=== PATIENT | female | born 1935 | race Caucasian/White ===

== ENCOUNTER 2018-11-09 10:41 | Emergency (ER) | payer OTHER ==
[~2018-11-09] VITALS: Ht 152.4 cm; Wt 54.7 kg
[2018-11-09 10:46] VITALS: Ht 152.4 cm; Wt 54.7 kg
[2018-11-09] MEDS ORDERED: AZIT250T PO (11:51)
--- NOTE | 2018-11-09 11:56 | ERD ---
ER Documentation Chief Complaint Chief Complaint cough x1wk HPI This is an 83-year-old female who has a history of A. fib complaining of cough that she has had for 3-4 days. No fever. No hemoptysis no unplanned weight loss. No nausea vomiting or diarrhea. No chest pain palpitations or shortness of breath. ROS All systems reviewed and are negative except as per history of present illness. Medications Home Meds Active Scripts Azithromycin* (Zithromax*) 250 Mg Tablet, 250 MG PO .ZPACK DIRECTED, #6 TAB TAKE 500 MG (2 TABS) THE FIRST DAY THEN 250 MG (1 TAB) DAYS 2-5 Prov:BESSY WHITLEY PA-C 11/09/18 Allergies Allergies: Coded Allergies: No Known Allergy (Unverified , 11/09/18) PMhx/Soc History of Surgery: Yes (APPENDIX REMOVAL) Hx Miscellaneous Medical Probl: Yes (HTN) Hx Alcohol Use: No Hx Substance Use: No Hx Tobacco Use: No Smoking Status: Never smoker FmHx Family History: No diabetes Physical Exam Vitals Vital Signs Date Temp Pulse Resp B/P (MAP) Pulse Ox O2 O2 Flow FiO2 Time Delivery Rate 11/09/18 98.7 87 18 148/72 96 10:46 (97) Physical Exam INITIAL VITAL SIGNS: Reviewed by me GENERAL: Awake, alert and oriented x 4, well appearing, nontoxic, speaking in full sentences. No acute distress HEAD: Atraumatic NECK: Supple. No masses. Full range of motion. No meningismus. No midline tenderness. EYES: EOMI. PERRL. THROAT: No tonilar erythema or edema. No exudates. Uvula midline. No kissing tonsils. RESPIRATORY: Clear to auscultation bilaterally. Symmetric chest wall rise. No wheezing or rales. No accessory muscle use. CV: Regular rate and rhythm. No murmurs, rubs, or gallops. ABDOMEN: Soft, non-distended. Nontender. Negative [place]. Negative McBurneys point tenderness. No CVA tenderness bilaterally. No guarding. No rebound. Procedures/MDM This is a 83-year-old female who has a cough. Her blood pressure is slightly elevated otherwise vital signs are normal. She is well-appearing in no distress. Her lungs are clear. Her chest x-ray is negative. I reviewed the case with Dr. Fields who agrees history with outpatient management and she was discharged with a Z-Saulo. Patient counseled regarding my diagnostic impression and care plan. Prior to discharge all questions answered. Pt agrees with treatment plan and understands strict return precautions. Pt is instructed to follow up with primary care provider within 24-48 hours. Precautionary in structions provided including instructions to return to the ER if not improving or for any worsening or changing symptoms or concerns. Departure Diagnosis: Primary Impression: Bronchitis Condition: Stable Patient Instructions: Bronchitis, Antiobiotic Treatment (Adult) Additional Instructions: Llame al doctor MAKRISTIAN y kari eryn ZULEIKA PARA DENTRO DE 1-2 KASPER.Dgale a la secretaria que nosotros le instruimos hacer esta zuleika.Avise o llame si kennedy condicin se empeora antes de la zuleika. Regresa aqui si peor o no mejor. BESSY WHITLEY PA-C Nov 09, 2018 11:56
[2018-11-09 12:07] VITALS: BP 132/65; PULSE 81; RESP 18
== END 2018-11-09 12:11 | disposition home or self-care (01) ==
LOC: FTE 10:41
DX: J40 Bronchitis, not specified as acute or chronic (principal); I10 Essential (primary) hypertension
CPT/HCPCS: 71045